=== PATIENT | male | born 1965 | race Caucasian/White ===

== ENCOUNTER 2017-02-25 22:00 | Inpatient (IN) | payer MEDICAID ==
[~2017-02-25] VITALS: Ht 177.8 cm; Wt 63.5 kg
[~2017-02-25 22:00] MED LIST: CLOP75TA22 PO; LOVA40TA2 PO; NITR0.4T8 SL; OXYC-229 PO
[2017-02-25] MEDS ORDERED: CLOPIDOGREL 75 MG TABLET PO ONE (22:30)
[2017-02-25] MEDS ORDERED: SODIUM CHLORIDE FLUSH 10ML SYR IVF ONE (22:30)
[2017-02-25] MEDS ORDERED: NITROGLYCERIN SINGLE TAB 0.4 MG SL PRN (22:30)
[2017-02-25] MEDS ORDERED: CLOPIDOGREL 75 MG TABLET ONE (22:45)
[2017-02-25] MEDS ORDERED: NITROGLYCERIN SINGLE TAB 0.4 MG SL ONE (22:45)
[2017-02-25 22:55] LABS: ASPARTATE AMINO TRANSFERASE 25 U/L (15-37); BLOOD UREA NITROGEN 12 mg/dL (7-18)
[2017-02-25 23:02] LABS: IS PT STATUS REG ER OR PRE ER? YES
[2017-02-25] MEDS ORDERED: ONDANSETRON 2MG/ML, 2ML IVPush PRN (23:30)
[2017-02-25] MEDS ORDERED: MORPHINE SULFATE 4 MG/ML, 1ML IVPush PRN (23:30)
[2017-02-25] MEDS ORDERED: SODIUM CHLORIDE 0.9% 1,000 ML IV SCH (23:56)
[2017-02-26] MEDS ORDERED: BISACODYL 10 MG SUPP PR PRN
[2017-02-26] MEDS ORDERED: ACETAMINOPHEN 325 MG TABLET PO PRN
[2017-02-26] MEDS ORDERED: POLYETHYLENE GLYCOL 17 GM PACKET PO PRN
[2017-02-26] MEDS ORDERED: LOVASTATIN 40 MG TABLET PO SCH
[2017-02-26] MEDS ORDERED: NITROGLYCERIN 0.4 MG BOTTLE (25 TABS) SL PRN
[2017-02-26] MEDS ORDERED: ONDANSETRON 2MG/ML, 2ML IVPush PRN
[2017-02-26] MEDS ORDERED: morphine SULFATE 10 MG/ML, 1ML IVPush PRN
[2017-02-26] MEDS ORDERED: POTASSIUM CHLORIDE 20 MEQ TAB.ER.PRT PO ONE
[2017-02-26 02:07] VITALS: BP 125/79
[2017-02-26] MEDS: HEPARIN 5,000 UNITS/ML, 1ML SQ SCH ×2 (02:37→09:44)
[2017-02-26 05:23] LABS: IS PT STATUS REG ER OR PRE ER? NO
[2017-02-26 08:43] VITALS: BP 113/76
[2017-02-26] MEDS ORDERED: CLOPIDOGREL 75 MG TABLET PO SCH (09:00)
[2017-02-26] MEDS ORDERED: SENNA/DOCUSATE TABLET PO SCH (09:00)
[2017-02-26] MEDS ORDERED: REGADENOSON 0.4 MG/5 ML SYRINGE ONE (10:39)
[2017-02-26 10:49] LABS: BLOOD UREA NITROGEN 9 mg/dL (7-18)
[2017-02-26 10:57] LABS: IS PT STATUS REG ER OR PRE ER? NO
[2017-02-26] MEDS ORDERED: NITR0.4T SL (13:02)
[2017-02-26] MEDS ORDERED: LOVA40TA2 PO (13:02)
[2017-02-26] MEDS ORDERED: CLOP75TA22 PO (13:02)
== END 2017-02-26 14:22 | disposition home or self-care (01) | DRG 313 ==
LOC: ED 23:18 → EDIP 23:19 → ED 23:39 → 5SO 02-26 01:43 → DCLOUNGE 02-26 13:45
DX: R07.9 Chest pain, unspecified (principal); E87.1 Hypo-osmolality and hyponatremia; D72.829 Elevated white blood cell count, unspecified; E78.5 Hyperlipidemia, unspecified; E87.6 Hypokalemia; F17.210 Nicotine dependence, cigarettes, uncomplicated; I25.10 Atherosclerotic heart disease of native coronary artery without angina pectoris; R00.0 Tachycardia, unspecified; R50.9 Fever, unspecified; I25.2 Old myocardial infarction; Z59.0 Homelessness; Z82.49 Family history of ischemic heart disease and other diseases of the circulatory system; Z91.19 Patient's noncompliance with other medical treatment and regimen; Z95.5 Presence of coronary angioplasty implant and graft; Z71.6 Tobacco abuse counseling; Z88.6 Allergy status to analgesic agent; Z88.5 Allergy status to narcotic agent; Z88.0 Allergy status to penicillin; Z90.49 Acquired absence of other specified parts of digestive tract; Z79.899 Other long term (current) drug therapy; Z79.02 Long term (current) use of antithrombotics/antiplatelets
CPT/HCPCS: 36415; 71010; 78452; 80048; 80053; 81003; 84439; 84443; 84484; 85025; 93005; 93017; 99285; J1644; J2785; A9502; C9898; J7030

== ENCOUNTER 2018-02-23 23:36 | Emergency (ER) | payer MEDICAID ==
[~2018-02-23] VITALS: Ht 177.8 cm; Wt 65.0 kg
[~2018-02-23 23:36] MED LIST changes: -CLOP75TA22 PO; +CLOP75TA52 PO; +NITR0.4T SL; +NITR0.4T28 SL; -NITR0.4T8 SL; -OXYC-229 PO; +OXYC-307 PO
[2018-02-24] MEDS ORDERED: ASPIRIN 81 MG TABLET CHEW PO ONE
[2018-02-24 00:14] LABS: BASOPHILS # (AUTO) 0.08 x10^3/uL (0-0.1); BASOPHILS % (AUTO) 1 % (0-1); EOSINOPHILS # (AUTO) 0.23 x10^3/uL (0-0.4); EOSINOPHILS % (AUTO) 2 % (1-7); LYMPHOCYTES # (AUTO) 3.38 x10^3/uL (1-3.4); LYMPHOCYTES % (AUTO) 25 % (22-44); MD NO; MEAN CORPUSCULAR HEMOGLOBIN 30.9 pg (27.5-34.5); MEAN CORPUSCULAR HGB CONC 33.7 g/dL (33.2-36.2); MEAN CORPUSCULAR VOLUME 91.7 fL (81-97); MEAN PLATELET VOLUME 8.5 fL (7.4-10.4); MONOCYTES # (AUTO) 0.11 x10^3/uL (0.2-0.8); MONOCYTES % (AUTO) 1 % (2-9); NEUTROPHILS # (AUTO) 9.62 x10^3/uL (1.8-6.8); NEUTROPHILS % (AUTO) 72 % (42-75); PLATELET COUNT 252 x10^3/uL (130-400); RED BLOOD COUNT 4.99 x10^6/uL (4.38-5.82)
[2018-02-24] MEDS ORDERED: NITROGLYCERIN SINGLE TAB 0.4 MG SL ONE (00:18)
[2018-02-24] MEDS ORDERED: ASPIRIN 81 MG TABLET CHEW ONE (00:18)
[2018-02-24 00:22] LABS: INTERNATIONAL NORMALIZED RATIO 0.95 (0.93-1.1); PROTHROMBIN TIME 9.9 Seconds (9.6-11.5)
[2018-02-24 00:25] LABS: ALANINE AMINOTRANSFERASE 19 U/L (12-78); ALBUMIN 3.3 g/dL (3.4-5.0); ANION GAP 9 mmol/L (5-15); CALCIUM 8.4 mg/dL (8.5-10.1); CHLORIDE 110 mmol/L (98-107); CREATININE 0.87 mg/dL (0.7-1.3)
[2018-02-24 00:30] LABS: ALKALINE PHOSPHATASE 76 U/L (45-117); BILIRUBIN,TOTAL 0.5 mg/dL (0.2-1.0); TOTAL PROTEIN 6.8 g/dL (6.4-8.2); TROPONIN I < 0.015 ng/mL (0.000-0.045)
[2018-02-24] MEDS ORDERED: NITROGLYCERIN SINGLE TAB 0.4 MG SL PRN (00:30)
[2018-02-24] MEDS ORDERED: NITROGLYCERIN OINT 2%, 1GM TP ONE ×2 (01:08→01:30)
[2018-02-24] MEDS ORDERED: ACETAMINOPHEN 500 MG TABLET ONE (01:08)
[2018-02-24] MEDS ORDERED: ACETAMINOPHEN 500 MG TABLET PO ONE (01:30)
[2018-02-24] MEDS ORDERED: SODIUM CHLORIDE 0.9% 1,000 ML IV SCH (05:21)
[2018-02-24] MEDS ORDERED: hydrALAzine 20 MG/ML, 1ML IVPush PRN (05:30)
[2018-02-24] MEDS ORDERED: ONDANSETRON ODT 4 MG PO PRN (05:30)
[2018-02-24] MEDS ORDERED: ACETAMINOPHEN 325 MG TABLET PO PRN (05:30)
[2018-02-24 05:58] LABS: CHOL/HDL RATIO 4.9; CHOLESTEROL, TOTAL 162 mg/dL (140-239); HDL CHOL % 20 % (26-37); HDL CHOLESTEROL (DIRECT) 33 mg/dL (40-60); LDL CHOLESTEROL,CALCULATED 90 mg/dL (54-169); TRIGLYCERIDES 194 mg/dL (50-200); VLDL CHOLESTEROL 39 mg/dL (0-25)
[2018-02-24 05:59] LABS: LDL/HDL RATIO 2.7 (0.5-3.0); TROPONIN I < 0.015 ng/mL (0.000-0.045)
[2018-02-24] MEDS ORDERED: REGADENOSON 0.4 MG/5 ML SYRINGE ONE (08:22)
[2018-02-24 09:54] LABS: CULTURE INDICATED? NO; MICROSCOPIC NOT IND
[2018-02-24 11:41] VITALS: BP 104/70
[2018-02-24] MEDS ORDERED: ACETAMINOPHEN 325 MG TABLET ONE (11:44)
== END 2018-02-24 14:25 | disposition left against medical advice (07) ==
LOC: ED 23:48 → UNDOADMIN 02-24 01:14 → EDIP 02-24 01:14 → ED 02-24 14:25
DX: R07.2 Precordial pain (principal); I25.2 Old myocardial infarction; I11.9 Hypertensive heart disease without heart failure; E78.00 Pure hypercholesterolemia, unspecified; J44.9 Chronic obstructive pulmonary disease, unspecified; I25.10 Atherosclerotic heart disease of native coronary artery without angina pectoris; F17.200 Nicotine dependence, unspecified, uncomplicated; Z95.1 Presence of aortocoronary bypass graft; Z90.49 Acquired absence of other specified parts of digestive tract
CPT/HCPCS: 36415; 71045; 78452; 80053; 80061; 81003; 83690; 83880; 84484; 85025; 85379; 85610; 85730; 93005; 93017; 99285; A9502; C9898; J2785; J7030; 96360; 96361

== ENCOUNTER 2019-04-28 01:26 | Emergency (ER) | payer MEDICAID ==
[~2019-04-28] VITALS: Ht 177.8 cm; Wt 67.3 kg
[~2019-04-28 01:26] MED LIST changes: -NITR0.4T SL; +NITR0.4T41 SL
[2019-04-28 01:27] VITALS: BP 102/69
--- NOTE | 2019-04-28 02:25 | NUR ---
RIGHT SHOULDER AND ARM PAIN AFTER WRESTLING WITH [employer] 2 DAYS AGO. CMS INTACT.
[2019-04-28] MEDS ORDERED: OXYcodone/APAP 5/325MG TABLET ONE (03:09)
[2019-04-28] MEDS ORDERED: OXYcodone/APAP 5/325MG TABLET PO ONE (03:30)
== END 2019-04-28 05:06 | disposition home or self-care (01) ==
LOC: ED 04:55
DX: S43.51XA Sprain of right acromioclavicular joint, initial encounter (principal); I10 Essential (primary) hypertension; I25.2 Old myocardial infarction; J44.9 Chronic obstructive pulmonary disease, unspecified; I25.10 Atherosclerotic heart disease of native coronary artery without angina pectoris; E78.00 Pure hypercholesterolemia, unspecified; E78.5 Hyperlipidemia, unspecified; X50.1XXA Overexertion from prolonged static or awkward postures, initial encounter; Y93.89 Activity, other specified; Y92.488 Other paved roadways as the place of occurrence of the external cause; Y99.8 Other external cause status
CPT/HCPCS: 93005; 99283

== ENCOUNTER 2019-05-03 14:03 | Emergency (ER) | payer MEDICAID, OTHER ==
[~2019-05-03] VITALS: Ht 177.8 cm; Wt 67.0 kg
[2019-05-03 14:14] VITALS: BP 115/67
[2019-05-03] MEDS ORDERED: OXYcodone/APAP 5/325MG TABLET ONE (15:28)
[2019-05-03] MEDS ORDERED: OXYcodone/APAP 5/325MG TABLET PO ONE (15:30)
--- NOTE | 2019-05-03 15:45 | NUR ---
DC EDUCATION PROVIDED, PT DEMONSTRATES UNDERSTANDING. PT AMBULATED STEADILY TO DC WITH RN
== END 2019-05-03 15:58 | disposition home or self-care (01) ==
LOC: ED 14:15
DX: M25.511 Pain in right shoulder (principal); I25.10 Atherosclerotic heart disease of native coronary artery without angina pectoris; E78.00 Pure hypercholesterolemia, unspecified; I25.2 Old myocardial infarction; J44.9 Chronic obstructive pulmonary disease, unspecified; E78.5 Hyperlipidemia, unspecified; I10 Essential (primary) hypertension; Z90.49 Acquired absence of other specified parts of digestive tract; F17.200 Nicotine dependence, unspecified, uncomplicated
CPT/HCPCS: 99283

== ENCOUNTER 2019-05-25 11:15 | Observation (INO) | payer MEDICAID ==
[~2019-05-25] VITALS: Ht 177.8 cm; Wt 63.5 kg
[2019-05-26 10:19] VITALS: BP 105/70
== END 2019-05-26 13:01 | disposition left against medical advice (07) ==
LOC: ED 14:14 → INTOOBSV 14:54 → EDIP 14:54 → 5SO 15:10
PROVIDERS: ADMIT Internal Medicine; ATTEND Internal Medicine
DX: R07.89 Other chest pain (principal); I25.10 Atherosclerotic heart disease of native coronary artery without angina pectoris; J44.9 Chronic obstructive pulmonary disease, unspecified; E78.5 Hyperlipidemia, unspecified; I10 Essential (primary) hypertension; G43.909 Migraine, unspecified, not intractable, without status migrainosus; F17.210 Nicotine dependence, cigarettes, uncomplicated; Z79.899 Other long term (current) drug therapy; Z79.82 Long term (current) use of aspirin; Z79.01 Long term (current) use of anticoagulants; Z91.14 Patient's other noncompliance with medication regimen
CPT/HCPCS: 36415; 71046; 78452; 80053; 80061; 83036; 83735; 84100; 84443; 84484; 85025; 85379; 85610; 85730; 93005; 93017; 93306; 96372; 96374; 96375; 96376; 99284; A9502; C9898; G0378; J1200; J1650; J1885; J2270; J2785; 99285